=== PATIENT | female | born 1995 | race Native Hawaiian/Other Pacific Islander ===

== ENCOUNTER 2020-08-10 11:24 | Outpatient (CLI) | payer BC, SELFPAY ==
[2020-08-10 12:15] LABS: Basophils # 0.1 10^3/uL (0.0-0.1); Basophils % 0.3 %; Eosinophils # 0.2 10^3/uL (0.0-0.8); Eosinophils % 1.2 %; Hemoglobin 14.6 g/dL (11.5-15.3); Lymphocytes # 6.8 10^3/uL (0.8-4.8); Mean Corpuscular HGB Conc 31.7 g/dL (30.0-36.0); Mean Corpuscular Hemoglobin 27.2 pg (28.0-34.0); Mean Corpuscular Volume 85.8 fL (81-99); Monocytes # 1.1 10^3/uL (0.2-0.9); Monocytes % 7.1 %; Neutrophils # 6.64 10^3/uL (1.8-7.7); Neutrophils % 45.1 %; Nucleated Red Blood Cells % 0 %; Platelet Count 413 10^3/cmm (130-400); Red Blood Count 5.36 10^6/uL (4.1-5.3); White Blood Count 14.8 10^3/uL (4.0-10.0)
[2020-08-10 12:37] LABS: Bilirubin Urine Neg (Negative); Blood Urine Neg (Negative); Glucose Urine UA Norm (Normal); Ketones Urine Negative (Negative); Leukocyte Esterase Urine Negative (Negative); Nitrate Urine Negative (Negative); Protein Urine Neg (Negative); Urine Appearance Clear (CLEAR); Urine Color Yellow (Yellow); Urobilinogen Urine Norm (Negative); pH Urine 5 (5-7)
[2020-08-10 12:48] LABS: Alanine Aminotransferase 66 U/L (0-33); Albumin Level 4.3 g/dL (3.5-5.2); Alkaline Phosphatase 92 IU/L (35-105); Anion Gap 14.6 (5-19); Aspartate Amino Transferase 31 U/L (0-32); Blood Urea Nitrogen 12 mg/dL (6-20); Calcium 9.2 mg/dL (8.5-10.5); Carbon Dioxide 29 mmol/L (22-29); Chloride 100 mmol/L (98-107); Globulin 3.5 g/dL (1.3-4.6); Glucose 90 mg/dL (65-115); Osmolality Calculated 289 mOsm/kg (285-295); Potassium 3.6 mmol/L (3.5-5.1); Sodium 140 mmol/L (136-145); Thyroid Stimulating Hormone 3.33 uIU/mL (0.27-4.20); Total Bilirubin 0.3 mg/dL (0.15-1.2); Total Protein 7.8 g/dL (6.6-8.7)
[2020-08-10 12:59] LABS: Add Urine Culture? No; Bacteria Urine TRACE /hpf; Mucus Urine 1+ /hpf; Squamous Epithelial Cell Urine 0-4 /hpf (0-5); WBC Urine RARE /hpf (0-5)
[2020-08-10 13:30] LABS: Slide Review Slide Review Perform
[2020-08-10 13:58] LABS: Erythrocyte Sedimentation Rate 17 mm/hr (0-15)
== END 2020-08-10 11:25 | disposition home or self-care (01) ==
LOC: LAB 11:37
PROVIDERS: Visit Provider Specialist
DX: R42 Dizziness and giddiness (principal)
CPT/HCPCS: 80053; 81001; 84443; 85025; 85651; 86780

== ENCOUNTER 2020-08-15 10:52 | Outpatient (CLI) | payer BC, SELFPAY ==
--- NOTE | 2020-08-15 11:03 | MR_ITS ---
WS: [id number] MRI HEAD WITH CONTRAST WITH ATTENTION TO THE INTERNAL AUDITORY CANALS TECHNIQUE: Sagittal T1, T2 axial, T2 axial flair, axial susceptibility weighted imaging, axial diffus ion weighted images, and coronal T2 images were obtained. Pre and post T1 axial and post T1 coronal i mages. ADC and FSPGR images. Post gadolinium images with attention to the internal auditory canals. A xial fiesta imaging. CLINICAL INFORMATION: DIZZINESS AND GIDDINESS COMPARISON: None. FINDINGS: No evidence of restricted diffusion to suggest acute ischemia. Ventricular system and basal cisterns are patent. No hemosiderin on the susceptibly weighted images. Normal vascular flow voids at the skul l base. No extra-axial fluid collections. No evidence of mass or mass effect. No suspicious intracana l signal abnormalities. Proximal 7th and 8th cranial nerves are normal in appearance. Normal trigeminal nerve root entry zone s. No evidence of enhancing IAC or CP angle mass. Normal trigeminal nerve root entry zones. Normal du ral venous sinuses. No abnormal parenchymal enhancement. MR/MR iac's wo/w con* [id number] IMPRESSION: 1. No evidence of enhancing IAC or CP angle mass. Normal trigeminal nerve root entry zones. 2. Normal optic chiasm and pituitary infundibulum. 3. Paranasal sinuses and mastoid air cells are well aerated. 4. No hemosiderin on the susceptibly weighted images. 5. No other significant findings.
== END 2020-08-15 10:53 | disposition home or self-care (01) ==
LOC: RADSHAW 10:59
PROVIDERS: Visit Provider Specialist
DX: R42 Dizziness and giddiness (principal)
CPT/HCPCS: 70553; A9579

== ENCOUNTER 2021-04-13 08:44 | Observation (INO) | payer SELFPAY ==
[2021-04-13] VITALS (19 sets, daily range): BP systolic 101–122; BP diastolic 53–81; PULSE 59–104; RESP 14–22; TEMP 36.4–36.6; O2SAT 97–100; BMI 29.7
--- NOTE | 2021-04-13 09:02 | ECG_ITS ---
[facility] Test Date: 2021-04-13 Pat Name: Neno Mills Department: Room: Gender: Female Concrete Polisher: : 1995 Requested By: Reji Barbosa Order Number: [id number] Deanne MD: Jordan Melvin M.D. Measurements Intervals [place] Rate: 64 P: 13 DC: 145 QRS: 76 QRSD: 85 T: 52 QT: 420 QTc: 436 Interpretive Statements SINUS RHYTHM No previous ECG available for comparison Electronically Signed On 04-13-2021 20:05:10 CDT by Jordan Melvin M.D. [id number]
--- NOTE | 2021-04-13 09:18 | US_ITS ---
WS: [id number] ULTRASOUND ABDOMEN LIMITED CLINICAL INFORMATION: RUQ abd pain COMPARISON: None. FINDINGS: Liver Size: Normal. Craniocaudal length: 10.6 cm. Echogenicity: Normal. Surface nodularity: None. Mass (size and location): None. Bile ducts Intrahepatic ducts: Normal. Common bile duct diameter: 1.0 cm. Gallbladder Cholelithiasis Gallstones: Present Gallbladder sludge: None. Gallbladder wall thickenin.6 mm Pericholecystic fluid: None. Sonographic Avila sign: Absent. Pancreas Normal as visualized. Right kidney: Normal. Hydronephrosis: None. Size: 9.5 cm x 5.0 cm x 4.1 cm. Abdominal aorta and IVC Visualized portions are normal. Ascites: None. US/US gall bladder [id number] IMPRESSION: 1. Cholelithiasis. Minimal gallbladder wall thickening. No pericholecystic flu id or edema. 2. Dilated common bile duct measuring 9.6 mm. This could be followed up with [facility] to assess for choledocholithiasis. 3. No hydronephrosis in right kidney. 4. Normal liver.
--- NOTE | 2021-04-13 09:59 | ED_ITS ---
HPI - Abdominal Pain General: Chief Complaint: Abdominal Pain Stated Complaint: abd pain, N/V Time Seen by Provider: 04/13/21 08:45 History of Present Illness: HPI narrative: 25-year-old female presents emergency room complaining of right upper quadrant epigastric pain radiating to her back been going on for a week markedly worse overnight worse when she eats. It is somewhat positional at times. She denies any fever. No hematochezia melena hematemesis coffee-ground emesis no dysuria urgency or frequency or hematuria. MD elicited complaint: abdominal pain Onset (ago): day(s) Pain Consistency: intermittent Location: Epigastric Severity: moderate Radiation: back Exacerbating factors: eating Relieving factors: nothing and eating Associated Symptoms: Reports GI cramping, diarrhea, heartburn, nausea, poor appetite and vomiting; Denies anorexia, belching, bloating, change in bowel habits, change in stool character, chills, coffee ground emesis, constipation, dyspepsia, dysuria, excessive flatus, fever(s), hematochezia, hematuria, hematemesis, fecal incontinence, loose stools, melena and syncope Review of Systems Const: Denies: fever(s) or chills ENMT: Denies: throat pain, ear or mastoid pain, nasal discharge or nasal congestion Card: Denies: syncope Resp: Denies: dyspnea, productive cough or non-productive cough GI: Reports: nausea, vomiting, heartburn, diarrhea and GI cramping; Denies: hematemesis, coffee ground emesis, constipation, bloating, belching, excessive flatus, fecal incontinence, change in bowel habits, change in stool character, hematochezia or melena : Denies: dysuria or hematuria Skin/Breast: Denies: rash or pruritus Physical Exam Const: COMMON NORMALS: no acute distress GENERAL APPEARANCE: cooperative and comfortable ORIENTATION/CONSCIOUSNESS: Yes awake, Yes oriented to person, Yes oriented to place and Yes oriented to time HENMT: COMMON NORMALS: normocephalic, atraumatic and hearing grossly normal bilaterally HEAD & SCALP: normocephalic and atraumatic Neck/C-Spine: COMMON NORMALS: no JVD Resp: COMMON NORMALS: normal respiratory effort, No retractions, No use of accessory muscles and clear to auscultation bilaterally AUSCULTATION: clear to auscultation bilaterally Cardio: COMMON NORMALS: no JVD, regular rate, regular rhythm and No murmurs present (Cardio) RATE: regular rate RHYTHM: regular rhythm GI: COMMON NORMALS: Soft to palpation and No hepatosplenomegaly present AUSCULTATION: Yes normoactive bowel sounds PALPATION: Yes Soft to palpation, Yes Tenderness to palpation present (GI) Details: RUQ, No Guarding due to palpation present (GI) and Yes No hepatosplenomegaly present Extremity: COMMON NORMALS: normal to inspection, capillary refill normal, no clubbing, cyanosis or edema, no calf tenderness and no pedal edema Neuro: SENSORIUM/ORIENTATION: Yes oriented to person, Yes oriented to place and Yes oriented to time Skin: COMMON NORMALS: no rashes or lesions noted GENERAL SKIN EXAM: no rashes or lesions noted Course Vital Signs: Vital signs: Vital Signs Temperature 97.5 F L 04/13/21 09:02 Pulse Rate 63 04/13/21 09:02 Respiratory Rate 16 04/13/21 09:02 Blood Pressure 122/81 04/13/21 11:10 Pulse Oximetry 100 04/13/21 11:10 MDM - Abdominal Pain MDM Narrative: Medical decision making narrative: Question of, bile duct dilation on the ultrasound recommended an MRCP. MRCP was done there is no evidence of common bile duct stones however there is a stone of the neck of the gallbladder. Discussed Dr. Blanco he will come and see the patient Lab Data: Labs: Lab Results 04/13/21 04/13/21 04/13/21 Range/Units 09:51 09:55 09:55 WBC 6.5 (4.0-10.0) 10^3/ uL RBC 4.89 (4.1-5.3) 10^6/u L Hgb 14.0 (11.5-15.3) g/dL Hct 41.8 (37.0-47.0) % MCV 85.5 (81-99) fl MCH 28.6 (28.0-34.0) pg MCHC 33.5 (30.0-36.0) g/dL RDW 11.5 L (12.1-15.1) % Plt Count 317 (130-400) 10^3/c mm MPV 8.9 (7.4-10.4) fL Neut % (Auto) 78.5 % Lymph % (Auto) 14.1 % [place] % (Auto) 6.3 % Eos % (Auto) 0.3 % Baso % (Auto) 0.6 % Neut # (Auto) 5.13 (1.8-7.7) 10^3/u L Lymph # (Auto) 0.9 (0.8-4.8) 10^3/u L [place] # (Auto) 0.4 (0.2-0.9) 10^3/u L Eos # (Auto) 0.0 (0.0-0.8) 10^3/u L Baso # (Auto) 0.0 (0.0-0.1) 10^3/u L Nucleated RBC % (a uto) 0 % Nucleated RBCs # 0.0 /100WBC Sodium 128 L (136-145) mmol/L Potassium 4.0 (3.5-5.1) mmol/L Chloride 94 L (98-107) mmol/L Carbon Dioxide 24 (22-29) mmol/L Anion Gap 14.0 (5-19) BUN 8 (6-20) mg/dL Creatinine 0.5 (0.5-0.9) mg/dL GFR Calculation 149.1 H (90-130) mL/min Glucose 101 (65-115) mg/dL Calculated Osmolal ity 264 L (285-295) mOsm/k g Calcium 9.2 (8.5-10.5) mg/dL Total Bilirubin 1.6 H (0.15-1.2) mg/dL AST 677 H (0-32) U/L ALT 419 H (0-33) U/L Alkaline Phosphata se 113 H (35-105) IU/L Total Protein 8.1 (6.6-8.7) g/dL Albumin 4.2 (3.5-5.2) g/dL Globulin 3.9 (1.3-4.6) g/dL Urine Color Yellow (Yellow) Urine Appearance Clear (CLEAR) Urine pH 9 H (5-7) Ur Specific Gravit y 1.015 (1.005-1.030) Urine Protein Neg (Negative) Urine Glucose (UA) Norm (Normal) Urine Ketones 2+ H (Negative) Urine Blood Neg (Negative) Urine Nitrate Negative (Negative) Urine Bilirubin 1+ H (Negative) Prot Sulfosalicyli c Acd Negative (Negative) Urine Urobilinogen 1 H (Negative) mg/dL Ur Leukocyte Evelyn ase 1+ H (Negative) Urine RBC None (0-2) /hpf Urine WBC 5-10 H (0-5) /hpf Ur Squamous Epith Cells 5-10 H (0-5) /hpf Amorphous Sediment Not Reportable Urine Bacteria 1+ H (NONE) /hpf Urine Mucus 2+ /hpf Discharge Plan Discharge Patient Disposition: Admitted As Inpatient Clinical Impression: Acute cholecystitis Condition: Stable Coding Level of Care Code ED [facility] Director for Chg Fwd Exam Comprehensive
[2021-04-13] MEDS: sodium chloride 0.9% 1,000 ML 999 ML IV (10:03)
[2021-04-13 10:08] LABS: Basophils % 0.6 %; Eosinophils % 0.3 %; Hematocrit 41.8 % (37.0-47.0); Lymphocytes # 0.9 10^3/uL (0.8-4.8); Lymphocytes % 14.1 %; Mean Corpuscular HGB Conc 33.5 g/dL (30.0-36.0); Mean Corpuscular Hemoglobin 28.6 pg (28.0-34.0); Mean Corpuscular Volume 85.5 fl (81-99); Mean Platelet Volume 8.9 fL (7.4-10.4); Monocytes # 0.4 10^3/uL (0.2-0.9); Monocytes % 6.3 %; Neutrophils # 5.13 10^3/uL (1.8-7.7); Neutrophils % 78.5 %; Nucleated Red Blood Cells % 0 %; Platelet Count 317 10^3/cmm (130-400); Red Blood Count 4.89 10^6/uL (4.1-5.3); Red Cell Distribution Width 11.5 % (12.1-15.1); White Blood Count 6.5 10^3/uL (4.0-10.0)
[2021-04-13 10:33] LABS: Alanine Aminotransferase 419 U/L (0-33); Albumin Level 4.2 g/dL (3.5-5.2); Alkaline Phosphatase 113 IU/L (35-105); Aspartate Amino Transferase 677 U/L (0-32); Blood Urea Nitrogen 8 mg/dL (6-20); Calcium 9.2 mg/dL (8.5-10.5); Carbon Dioxide 24 mmol/L (22-29); Chloride 94 mmol/L (98-107); Globulin 3.9 g/dL (1.3-4.6); Glomerular Filtration Rate 149.1 mL/min (90-130); Glucose 101 mg/dL (65-115); Osmolality Calculated 264 mOsm/kg (285-295); Sodium 128 mmol/L (136-145); Total Bilirubin 1.6 mg/dL (0.15-1.2); Total Protein 8.1 g/dL (6.6-8.7)
[2021-04-13 10:38] LABS: Add Urine Microscopic? YES; Bilirubin Urine 1+ (Negative); Blood Urine Neg (Negative); Glucose Urine UA Norm (Normal); Ketones Urine 2+ (Negative); Leukocyte Esterase Urine 1+ (Negative); Nitrate Urine Negative (Negative); Protein Urine Neg (Negative); Specific Gravity, Urine 1.015 (1.005-1.030); Sulfosalicylic Acid Urine Negative (Negative); Urine Appearance Clear (CLEAR); Urine Color Yellow (Yellow); Urobilinogen Urine 1 mg/dL (Negative); pH Urine 9 (5-7)
[2021-04-13 10:39] LABS: Add Urine Culture? Yes; Bacteria Urine 1+ /hpf; Mucus Urine 2+ /hpf
--- NOTE | 2021-04-13 11:03 | MR_ITS ---
WS: [id number] MRI/MRCP OF THE ABDOMEN WITHOUT GADOLINIUM ENHANCEMENT TECHNIQUE: Thin and thick slab MRCP, Axial T2, Coronal MRCP, Axial Dual Echo, and Axial 2-D Fiesta imaging was obtained. Coronal 2-D Fiesta imaging. CLINICAL INFORMATION: RUQ abd pain, dialated CBD COMPARISON: Ultrasound on April 24, 2021 FINDINGS: Cholelithiasis. No gallbladder wall thickening or pericholecystic fluid. Dilated common breana e duct with calculus in the tortuous gallbladder neck near the origin of the cystic duct. Calculus me asures approximately 7 mm. Common hepatic duct and common bile duct are normal in appearance. Normal pancreatic duct. No calculi within the cystic duct. Normal liver. No intrahepatic biliary ductal dilatation. Normal portal vein and splenic vein. Normal pancreas. Normal spleen. Adrenal glands are normal. No hydronephrosis in either kidney. Normal calibe r abdominal aorta. Normal spleen. No abdominal lymphadenopathy. MR/MR MRCP [id number] Impression: 1. 7 mm calculus in the gallbladder neck distally at the origin of the cystic duct. Common hepatic duct and common bile duct appear patent. The cystic duct o therwise appears patent. 2. Normal pancreatic duct. No evidence of pancreatic mass. 3. Cholelithiasis. No gallbladder wall thickening or pericholecystic fluid. 4. Normal liver. 5. No hydronephrosis in either kidney. Notified Reji Bush DO at 04/13/2021 12:37 PM.
--- NOTE | 2021-04-13 12:42 | P.HP_ITS ---
Providers/Chief Complaint Admitting Physician: General Surgery Karlo Blanco MD Chief Complaint: Upper abdominal pain, back pain History of Present Illness Neno Mills is a 25 year old female who says that she started having rather severe epigastric discomfort about a week ago. The pain was associated with nausea and some vomiting but there was never any evidence of hematemesis. She says she has been having loose stool over the past week, as well, but there has been no evidence of melena or hematochezia. She is not sure if she has had any fevers. She has had days where she was completely pain-free but then the pain seems to come back and will go through to her back. She developed the pain again last night after eating dinner and took some ibuprofen. She came to the hospital today when the pain continued to worsen. Imaging revealed a marginally thickened gallbladder wall with cholelithiasis and evidence of a stone stuck in the neck of the gallbladder. Her liver function studies were elevated somewhat and so an MRCP was done but there was no evidence of choledocholithiasis. The patient says this is the first time she is ever had pain like this. She has not had any food intolerances in the past. In short, she does not sound to have any convincing ongoing evidence of biliary colic. She does tell me she was lianna rn with hepatitis B. It does not sound like she has this checked on very often. Review of Systems General: Reports: 10 or more systems reviewed and unremarkable except in HPI and below GI: Reports: abdominal pain, nausea, vomiting, diarrhea and other (Born with hepatitis B, avoids eating red meat); Denies: hematemesis Medications/Allergies Home Medications Medication Instructions Recorded Confirmed Last Taken Type cetirizine [Zyrtec] 10 mg PO DAILY 04/13/21 04/13/21 Unknown History ibuprofen 400 mg PO Q4H PRN 04/13/21 04/13/21 04/13/21 08:00 History 400 mg Allergies Allergy/AdvReac Type Severity Reaction Status Date / Time No Known Allergies Allergy Verified 04/13/21 09:35 PFSH Acute PFSH: Medical History (Updated 04/13/21 @ 13:43 by Karlo Blanco MD) 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 She asked like she does not feel very well. The pupils are equal. No carotid bruits are heard. The lungs are clear. The heart seems regular. The abdomen reveals bowel sounds but they are hypoactive. Her maximum point of tenderness is in the epigastrium or perhaps slightly to the right side with a positive Avila's sign. She does have some tenderness off into the left upper quadrant, however. The extremities reveal no edema. Neurologically the patient appears to be grossly intact. Data : 04/13/21 09:55 04/13/21 09:55 Other Labs: Laboratory Tests 04/13/21 09:55 Total Bilirubin 1.6 H AST 677 H ALT 419 H Alkaline Phosphatase 113 H US: Radiologist's impression: Right upper quadrant ultrasound 04/13/2021 IMPRESSION: 1. Cholelithiasis. Minimal gallbladder wall thickening. No pericholecystic fluid or edema. 2. Dilated common bile duct measuring 9.6 mm. This could be followed up with MRCP to assess for choledocholithiasis. 3. No hydronephrosis in right kidney. 4. Normal liver. MRI: Radiologist's impression: MRCP 04/13/2021 impression: 1. 7 mm calculus in the gallbladder neck distally at the origin of the cystic duct. Common hepatic duct and common bile duct appear patent. The cystic duct otherwise appears patent. 2. Normal pancreatic duct. No evidence of pancreatic mass. 3. Cholelithiasis. No gallbladder wall thickening or pericholecystic fluid. 4. Normal liver. 5. No hydronephrosis in either kidney. A&P Assessment and plan (1) Acute cholecystitis: The patient has had rather severe symptoms on and off over the past week. This is the worst pain that she has had which brought her in today. Imaging shows a stone stuck in the neck of the gallbladder and no evidence of choledocholithiasis. The radiologist felt there was no evidence of gallbladder wall thickening but I would argue that a 3.6 mm wall is thickened. It would appear the patient has acute calculus cholecystitis. I have discussed gallbladder disease with the patient and her in detail. A cholecystectomy has been recommended. We discussed surgical risks of blee ding, infection, internal organ injury, etc. The patient seems to understand and would like to proceed with a cholecystectomy today. She has been n.p.o. since last night. We will keep her n.p.o. and will make arrangements for a cholecystectomy later today. Status: Acute (2) Elevated LFTs: I suspect this is most likely all secondary to the patient's cholecystitis, but she indicates that she does have a history of hepatitis B. I will check an acute hepatitis panel just to make sure there is nothing new. Status: Acute Attestations Medical Necessity Statement*: Based on my medical assessment, presenting symptoms and consideration of the scope of surgical therapy, I expect this patient will require treatment in the hospital for a period of time spanning less than 2 midnights, and is therefore being placed in observation status for now. Coding Level of Care Code Acute Document Review Specialist for Lolly Briceño Diagnoses Acute cholecystitis K81.0 Elevated LFTs R79.89
[2021-04-13] MEDS: morphine 4 mg/mL SDV 1 mL IVP (13:28)
[2021-04-13 14:12] LABS: HCG Qualitative Urine. Negative (Negative)
[2021-04-13 14:22] LABS: Hepatitis A Antibody IgM Non-Reactive (Nonreactive); Hepatitis B Core IgM Non-Reactive (Nonreactive); Hepatitis C Virus Antibody Non-Reactive (Nonreactive)
--- NOTE | 2021-04-13 14:50 | P.ANESASSM_ITS ---
Pre-Anesthetic Assessment Pre-Anesthetic Assessment: Height/Weight: Height 1.56 m Weight 72.575 kg Temp Pulse Resp BP Pulse Ox 97.5 F L 63 18 122/81 100 04/13/21 09:02 04/13/21 09:02 04/13/21 13:44 04/13/21 11:10 04/13/21 13:44 Preop Diagnosis: cholecystitis Proposed Procedure: Operation Date: 04/13/21 15:00 Proposed Procedures p Laparoscopic Cholecystectomy(Not Applicable) - Karlo Blanco MD Familial anesthetic complications: None Was Beta Chinyere taken within 24 hours: N/A Was Clonidine taken within 24 hours: N/A Last intake: Intake Last Liquid Date 04/13/21 Last Liquid Time 08:00 Last Solid Date 04/12/21 Last Solid Time 19:00 Social: Social History: No alcohol and No tobacco Exam: Pre-Anes Outpt Exam: alert, oriented x 3, clear to auscultation bilaterally and regular rate & rhythm Airway: Cervical ROM: WNL MP: 2 Dentition: False Hepatic: Hepatic: Hepatitis (B) Anesthetic Plan: ASA status: 2 Anesthesia: General Risk of > 500 ml blood loss (7ml/kg in children): No PFSH Anesthesia PFSH: Medical History (Updated 04/13/21 @ 13:43 by Karlo Blanco MD) 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 Hepatitis B Surgical History (Updated 04/13/21 @ 13:41 by Karlo Blanco MD) No significant past surgical history Social History (Updated 04/13/21 @ 13:41 by Karlo Blanco MD) Smoking and tobacco status: never smoked Alcohol intake: never Data Anesthesia CBC & Chem 7: 04/13/21 09:55 04/13/21 09:55 Other Labs: Laboratory Results - last 48 hr 04/13/21 04/13/21 04/13/21 09:51 09:51 09:55 WBC 6.5 RBC 4.89 Hgb 14.0 Hct 41.8 MCV 85.5 MCH 28.6 MCHC 33.5 RDW 11.5 L Plt Count 317 MPV 8.9 Neut % (Auto) 78.5 Lymph % (Auto) 14.1 [place] % (Auto) 6.3 Eos % (Auto) 0.3 Baso % (Auto) 0.6 Neut # (Auto) 5.13 Lymph # (Auto) 0.9 [place] # (Auto) 0.4 Eos # (Auto) 0.0 Baso # (Auto) 0.0 Nucleated RBC % (auto) 0 Nucleated RBCs # 0.0 Sodium Potassium Chloride Carbon Dioxide Anion Gap BUN Creatinine GFR Calculation Glucose Calculated Osmolality Calcium Total Bilirubin AST ALT Alkaline Phosphatase Total Protein Albumin Globulin HCG, Qual Negative Urine Color Yellow Urine Appearance Clear Urine pH 9 H Ur Specific [place] 1.015 Urine Protein Neg Urine Glucose (UA) Norm Urine Ketones 2+ H Urine Blood Neg Urine Nitrate Negative Urine Bilirubin 1+ H Prot Sulfosalicylic Acd Negative Urine Urobilinogen 1 H Ur Leukocyte Esterase 1+ H Urine RBC None Urine WBC 5-10 H Ur Squamous Epith Cells 5-10 H Amorphous Sediment Not Reportable Urine Bacteria 1+ H Urine Mucus 2+ Hepatitis A IgM Ab Hep B Core IgM Ab Hepatitis C Antibody 04/13/21 04/13/21 09:55 09:55 WBC RBC Hgb Hct MCV MCH MCHC RDW Plt Count MPV Neut % (Auto) Lymph % (Auto) [place] % (Auto) Eos % (Auto) Baso % (Auto) Neut # (Auto) Lymph # (Auto) [place] # (Auto) Eos # (Auto) Baso # (Auto) Nucleated RBC % (auto) Nucleated RBCs # Sodium 128 L Potassium 4.0 Chloride 94 L Carbon Dioxide 24 Anion Gap 14.0 BUN 8 Creatinine 0.5 GFR Calculation 149.1 H Glucose 101 Calculated Osmolality 264 L Calcium 9.2 Total Bilirubin 1.6 H AST 677 H ALT 419 H Alkaline Phosphatase 113 H Total Protein 8.1 Albumin 4.2 Globulin 3.9 HCG, Qual Urine Color Urine Appearance Urine pH Ur Specific [place] Urine Protein Urine Glucose (UA) Urine Ketones Urine Blood Urine Nitrate Urine Bilirubin Prot Sulfosalicylic Acd Urine Urobilinogen Ur Leukocyte Esterase Urine RBC Urine WBC Ur Squamous Epith Cells Amorphous Sediment Urine Bacteria Urine Mucus Hepatitis A IgM Ab Non-reactive Hep B Core IgM Ab Non-reactive Hepatitis C Antibody Non-reactive Cardiac Studies: No Data to Display
[2021-04-13] MEDS: metroNIDAZOLE IV 500 MG/100 ML PREMIX 100 MG IV ×2 (15:15→21:23)
[2021-04-13 15:19] LABS: Hepatitis B Surface Antigen Reactive (Nonreactive)
--- NOTE | 2021-04-13 15:58 | PM.OP ---
Operative Report Date of procedure: April 13, 2021 Pre-op Diagnosis: Acute calculus cholecystitis. Post-op diagnosis: same Procedure Done: Laparoscopic cholecystectomy. Specimens removed/disposition: Gallbladder. Surgeon: Karlo Blanco Anesthesia: General Estimated blood loss (mL): 5 Complications: None. Condition: stable Disposition: PACU Procedure: The patient was brought to the Operating Room and was placed in a supine position on the Operating Room table. General endotracheal anesthesia was induced. The abdomen was prepped and draped in a sterile fashion. A small vertical incision was carried out in the inferior aspect of the umbilicus. Blunt dissection was carried out down to the fascia, which was grasped with a Cole clamp. A stay suture of 0 Vicryl was placed on either side of the midline and the midline fascia was incised. The underlying peritoneum was opened bluntly and the [place] port was placed directly into the peritoneal cavity and was held in place with the inflatable balloon. The peritoneal cavity was insufflated with carbon dioxide. The laparoscope was used to inspect the abdominal cavity. The gallbladder appeared to be distended and the wall was edematous. No other gross abnormalities were noted. A 5 millimeter port was placed in the epigastrium under direct vision. Two 5-millimeter ports were placed on the right side of the abdomen under direct vision. The gallbladder was palpated with a grasper and was found to be very distended. For this reason approximately 30 mL of clear fluid was suctioned from the gallbladder using a laparoscopic needle. The gallbladder was then able to be grasped and elevated. Blunt dissection and hydrodissection were carried out in the infundibular region of the gallbladder and the cystic duct and cystic artery were identified. The surrounding tissue was edematous. The gallbladder was partially removed from the liver bed using cautery and the spatula to confirm the anatomy before the structures were clipped and divided. The gallbladder was then removed from the liver bed using cautery and the spatula. After the gallbladder had been removed from the liver bed, the laparoscope was moved to the epigastric port and the gallbladder was removed from the peritoneal cavity through the umbilical port site after being placed in a laparoscopic bag. The stay sutures of Vicryl were tied to each other at the umbilicus. An additional [id number] suture of 0 Vicryl was placed, closing the defect so that it was airtight. The perihepatic spaces were irrigated with saline and the liver bed was reinspected. No ongoing problems were seen. The remaining ports were removed from the abdominal wall and the pneumoperitoneum was evacuated. All skin incisions were closed using inverted interrupted sutures of 4-0 Vicryl. Benzoin and Steri-Strips were placed over the incisions and Band-Aids followed. The patient was taken to the Recovery Area in stable condition postoperatively.
[2021-04-13] MEDS: morphine 4 mg/mL SDV 1 mL 2 MG IVP (16:39)
[2021-04-13] MEDS: D5-NS 0.45% + KCL 20 mEq 20 MEQ/1,000 ML BAG 100 MEQ IV (17:48)
[2021-04-13] MEDS: heparin 5,000 unit/mL INJ 1 mL 5000 UNIT SUBCUT (17:48)
--- NOTE | 2021-04-13 18:34 | PC.NURSE ---
AM NOTE NOTED PT TO BE RESTING IN BED WITH FAMILY AT SIDE - INSTRUCTED PT ON NEED TO AMBULATE PRIOR TO HS - PT VERBALIZES UNDERSTANDING - HAND HELD CALL LIGHT AT SIDE - INSTRUCTED TO USE WITH NEEDS
[2021-04-13] MEDS: famotidine 20 mg/2 mL INJ IVP (19:59)
--- NOTE | 2021-04-13 20:05 | PC.NURSE ---
i report high reps 20 and low pulse 59 to nurse
--- NOTE | 2021-04-13 21:03 | ANE.PACU2 ---
Inpatient post-anesthesia follow up: Airway intact: Yes Vital signs: Temperature 97.7 F Pulse Rate [Left R adial] 63 Pulse Rate 59 Respiratory Rate 20 Blood Pressure [Le ft Arm] 114/77 Blood Pressure 113/76 Pulse Oximetry 97 Oxygen Delivery Me thod Room Air Oxygen Flow Rate 8 Fraction of Inspir ed Oxygen Hydration adequate: Yes Nausea and vomiting: No Pain level: 2 Mental status: Baseline
[2021-04-13] MEDS: ceFAZolin 1,000 MG in sodium chloride 0.9% (plus) 50 ML 100 MG IV (22:28)
[2021-04-13] MEDS: HYDROcodone-acetaminophen 5-325 mg Tablet PO (22:30)
[2021-04-14] VITALS: BP 116/79; PULSE 61; RESP 20; TEMP 36.7; O2SAT 98
--- NOTE | 2021-04-14 00:40 | PC.NURSE ---
i reported high reps to nurse
[2021-04-14 01:00] VITALS: BP 96/63; PULSE 63; RESP 18; O2SAT 96
[2021-04-14 03:03] LABS: Basophils % 0.3 %; Hematocrit 40.1 % (37.0-47.0); Hemoglobin 13.1 g/dL (11.5-15.3); Lymphocytes # 0.9 10^3/uL (0.8-4.8); Lymphocytes % 12.9 %; Mean Corpuscular HGB Conc 32.7 g/dL (30.0-36.0); Mean Corpuscular Hemoglobin 29.2 pg (28.0-34.0); Mean Corpuscular Volume 89.5 fl (81-99); Mean Platelet Volume 9.2 fL (7.4-10.4); Monocytes # 0.5 10^3/uL (0.2-0.9); Monocytes % 6.6 %; Neutrophils # 5.41 10^3/uL (1.8-7.7); Neutrophils % 79.9 %; Nucleated Red Blood Cells % 0 %; Platelet Count 296 10^3/cmm (130-400); Red Blood Count 4.48 10^6/uL (4.1-5.3); White Blood Count 6.8 10^3/uL (4.0-10.0)
[2021-04-14 03:27] LABS: Alanine Aminotransferase 427 U/L (0-33); Albumin Level 3.5 g/dL (3.5-5.2); Alkaline Phosphatase 104 IU/L (35-105); Anion Gap 11.5 (5-19); Aspartate Amino Transferase 357 U/L (0-32); Blood Urea Nitrogen 4 mg/dL (6-20); Calcium 8.3 mg/dL (8.5-10.5); Carbon Dioxide 22 mmol/L (22-29); Chloride 105 mmol/L (98-107); Globulin 3.1 g/dL (1.3-4.6); Glomerular Filtration Rate 149.1 mL/min (90-130); Glucose 141 mg/dL (65-115); Osmolality Calculated 277 mOsm/kg (285-295); Potassium 4.5 mmol/L (3.5-5.1); Sodium 134 mmol/L (136-145); Total Bilirubin 0.7 mg/dL (0.15-1.2); Total Protein 6.6 g/dL (6.6-8.7)
--- NOTE | 2021-04-14 03:59 | PC.NURSE ---
END OF SHIFT SUMMARY PT HAS RESTED THROUGHOUT SHIFT WITH V/S/S - HAS BEEN UP TO VOID WITH LITTLE ASSIST - ROSENDO FOOD WITHOUT DIFFICULTY THROUGHOUT SHIFT - ABD BAND AIDS X4 REMAIN C/D/I WITH NO REDNESS OR DRAINAGE - PAIN WELL CONTROLLED WITH 1 HYDROCODONE -EDUCATED PT THROUGHOUT SHIFT ON NEED TO AMBULATE - PT VERBALIZES UNDERSTANDING
[2021-04-14 04:00] VITALS: BP 115/74; PULSE 63; RESP 18; TEMP 36.8
[2021-04-14] MEDS: D5-NS 0.45% + KCL 20 mEq 20 MEQ/1,000 ML BAG 100 MEQ IV (05:04)
[2021-04-14] MEDS: heparin 5,000 unit/mL INJ 1 mL 5000 UNIT SUBCUT (05:04)
[2021-04-14] MEDS: metroNIDAZOLE IV 500 MG/100 ML PREMIX 100 MG IV (05:04)
[2021-04-14] MEDS: HYDROcodone-acetaminophen 5-325 mg Tablet PO ×2 (06:17→10:56)
[2021-04-14] MEDS: ceFAZolin 1,000 MG in sodium chloride 0.9% (plus) 50 ML 100 MG IV (06:17)
[2021-04-14 07:25] VITALS: BP 106/73; PULSE 67; RESP 17; TEMP 36.5; O2SAT 99
[2021-04-14] MEDS: famotidine 20 mg/2 mL INJ IVP (08:42)
--- NOTE | 2021-04-14 08:45 | PM.DCS ---
Discharge Providers Date of Admission: 04/13/21 17:03 Date of Discharge: April 14, 2021 Attending Provider at Admission: Karlo Blanco MD Attending Provider at Discharge: Karlo Blanco MD Diagnoses at Discharge Discharge Diagnosis (1) Acute cholecystitis: Status: Acute Permanent problem details: Acute calculus cholecystitis. (2) Elevated LFTs: Status: Acute Reason for Visit Reason for Visit: Upper abdominal pain, back pain Hospital Course Hospital Course This is a 25-year-old female who developed upper abdominal pain about a week prior to presentation. This was intermittent but then got severe the day she presented to the hospital. Imaging revealed acute calculus cholecystitis and her liver function studies were somewhat elevated. An MRCP was done but revealed no evidence of choledocholithiasis. She was counseled with respect to a cholecystectomy and agreed to proceed. By the following morning she was already feeling much better. Her transaminases were generally improved and her bilirubin was normal. She was anxious to go home. Her exam was unremarkable for her postoperative #1 day status. She was instructed with respect to wound care, activity limitations, diet, etc. Arrangements will be made for her to follow-up in my office as an outpatient. Physical Exam Narrative: EXAM NARRATIVE: The patient is afebrile and vital signs are stable. All of the laparoscopic incisions look good. Bowel sounds are present and she has the expected amount of tenderness on exam. Discharge Data Data Completed and Pending: Completed Studies During Hospitalization Category Date Time Status MR MRCP 23281 Sta t MRI 04/13/21 11:03 Completed US gall bladder 7 [id number] Stat Ultrasound 04/13/21 09:18 Completed Pending at discharge Category Date Time Status Urine Culture Sta t Lab 04/13/21 09:51 Received Pathology: Surgic al [PTH] Routine Pth 04/13/21 16:12 Ordered Labs from last 24 hours 04/14/21 04/14/21 04/13/21 02:36 02:36 09:55 WBC 6.8 RBC 4.48 Hgb 13.1 Hct 40.1 MCV 89.5 MCH 29.2 MCHC 32.7 RDW 12.0 L Plt Count 296 MPV 9.2 Neut % (Auto) 79.9 Lymph % (Auto) 12.9 [place] % (Auto) 6.6 Eos % (Auto) 0.0 Baso % (Auto) 0.3 Neut # (Auto) 5.41 Lymph # (Auto) 0.9 [place] # (Auto) 0.5 Eos # (Auto) 0.0 Baso # (Auto) 0.0 Nucleated RBC % (a uto) 0 Nucleated RBCs # 0.0 Sodium 134 L Potassium 4.5 Chloride 105 Carbon Dioxide 22 Anion Gap 11.5 BUN 4 L Creatinine 0.5 GFR Calculation 149.1 H Glucose 141 H Calculated Osmolal ity 277 L Calcium 8.3 L Total Bilirubin 0.7 AST 357 H ALT 427 H Alkaline Phosphata se 104 Total Protein 6.6 Albumin 3.5 Globulin 3.1 HCG, Qual Urine Color Urine Appearance Urine pH Ur Specific Gravit y Urine Protein Urine Glucose (UA) Urine Ketones Urine Blood Urine Nitrate Urine Bilirubin Prot Sulfosalicyli c Acd Urine Urobilinogen Ur Leukocyte Evelyn ase Urine RBC Urine WBC Ur Squamous Epith Cells Amorphous Sediment Urine Bacteria Urine Mucus Hepatitis A IgM Ab Non-reactive Hep Bs Antigen Reactive H Hep B Core IgM Ab Non-reactive Hepatitis C Antibo dy Non-reactive 04/13/21 04/13/21 04/13/21 09:55 09:55 09:51 WBC 6.5 RBC 4.89 Hgb 14.0 Hct 41.8 MCV 85.5 MCH 28.6 MCHC 33.5 RDW 11.5 L Plt Count 317 MPV 8.9 Neut % (Auto) 78.5 Lymph % (Auto) 14.1 [place] % (Auto) 6.3 Eos % (Auto) 0.3 Baso % (Auto) 0.6 Neut # (Auto) 5.13 Lymph # (Auto) 0.9 [place] # (Auto) 0.4 Eos # (Auto) 0.0 Baso # (Auto) 0.0 Nucleated RBC % (a uto) 0 Nucleated RBCs # 0.0 Sodium 128 L Potassium 4.0 Chloride 94 L Carbon Dioxide 24 Anion Gap 14.0 BUN 8 Creatinine 0.5 GFR Calculation 149.1 H Glucose 101 Calculated Osmolal ity 264 L Calcium 9.2 Total Bilirubin 1.6 H AST 677 H ALT 419 H Alkaline Phosphata se 113 H Total Protein 8.1 Albumin 4.2 Globulin 3.9 HCG, Qual Negative Urine Color Urine Appearance Urine pH Ur Specific Gravit y Urine Protein Urine Glucose (UA) Urine Ketones Urine Blood Urine Nitrate Urine Bilirubin Prot Sulfosalicyli c Acd Urine Urobilinogen Ur Leukocyte Evelyn ase Urine RBC Urine WBC Ur Squamous Epith Cells Amorphous Sediment Urine Bacteria Urine Mucus Hepatitis A IgM Ab Hep Bs Antigen Hep B Core IgM Ab Hepatitis C Antibo dy 04/13/21 09:51 WBC RBC Hgb Hct MCV MCH MCHC RDW Plt Count MPV Neut % (Auto) Lymph % (Auto) [place] % (Auto) Eos % (Auto) Baso % (Auto) Neut # (Auto) Lymph # (Auto) [place] # (Auto) Eos # (Auto) Baso # (Auto) Nucleated RBC % (a uto) Nucleated RBCs # Sodium Potassium Chloride Carbon Dioxide Anion Gap BUN Creatinine GFR Calculation Glucose Calculated Osmolal ity Calcium Total Bilirubin AST ALT Alkaline Phosphata se Total Protein Albumin Globulin HCG, Qual Urine Color Yellow Urine Appearance Clear Urine pH 9 H Ur Specific Gravit y 1.015 Urine Protein Neg Urine Glucose (UA) Norm Urine Ketones 2+ H Urine Blood Neg Urine Nitrate Negative Urine Bilirubin 1+ H Prot Sulfosalicyli c Acd Negative Urine Urobilinogen 1 H Ur Leukocyte Evelyn ase 1+ H Urine RBC None Urine WBC 5-10 H Ur Squamous Epith Cells 5-10 H Amorphous Sediment Not Reportable Urine Bacteria 1+ H Urine Mucus 2+ Hepatitis A IgM Ab Hep Bs Antigen Hep B Core IgM Ab Hepatitis C Antibo dy Vitals: Last Vital Signs Temp 97.7 F 04/14/21 07:25 Pulse 67 04/14/21 07:25 Resp 17 04/14/21 07:25 BP 106/73 04/14/21 07:25 Pulse Ox 99 04/14/21 07:25 Discharge Plan Discharge Patient Disposition: Home Condition: Stable Prescriptions: New hydrocodone-acetaminophen 5-325 mg tablet 1 - 2 tab PO Q5H PRN (Reason: pain) Qty: 30 RF: 0 Continued Zyrtec 10 mg Tablet 10 mg PO DAILY RF: 0 ibuprofen 200 mg Tablet 400 mg PO Q4H PRN (Reason: Pain) RF: 0 Discharge Orders: Discharge Order (Routine); Ordered 04/14/21 Ordered By: Karlo Blanco Referrals: Karlo Blanco MD [Physician] - 2 weeks (Nursing: Please have the patient / family call Dr. Blanco's office on Saturday ([phone]) and make an appointment for the patient to be seen in 7-10 days.) Discharge Diet: Advance as tolerated Discharge Activity: Limit activity as instructed Patient Instructions: Opioid Safety Activity Restrictions/Additional Instructions: 1. Discharge to home today. 2. Appointment to see Dr. Blanco in 10-14 days. 3. Bandages / bandaids off later today as discussed, leave Steri-Strip(s) on, may shower. 4. [place] 5/325 1-2 tablets by mouth every 5 hours as needed for pain. #30, no refills. No lifting over 20 pounds, no repetitive bending or twisting, no strenuous pushing / pulling or other heavy activity. Ambulate regularly. May go up and down steps if needed. Discharge Attestations Time Spent in Discharge Care*: less than 30 min Quality Metrics Clinical Quality Measures During this hospital stay, did patient experience: None Coding Level of Care Code Acute Chg [facility] note Diagnoses Acute cholecystitis K81.0 Elevated LFTs R79.89
[2021-04-14 08:50] VITALS: PULSE 88; RESP 16; O2SAT 98
[2021-04-14 11:08] VITALS: PULSE 88; RESP 16; O2SAT 98
--- NOTE | 2021-04-14 11:09 | PC.NURSE ---
patient verbalized understanding of discharge instructions, home medications, and follow up instructions.
--- NOTE | 2021-04-17 14:50 | PC.SOCIAL ---
discharge follow up call made. patient reports she is feeling much better. patient taking pain medication with relief of pain. patient follow up appointment made, date and time given to patient. no questions or concerns voiced.
== END 2021-04-14 11:12 | disposition home or self-care (01) ==
LOC: ER 13:06 → OPS 13:37 → MEDSURG 04-14 06:29
PROVIDERS: Admitting Provider Surgery; Emergency Provider Family Medicine; Visit Provider Surgery
PROC: 0FT44ZZ Resection of Gallbladder, Percutaneous Endoscopic Approach (ICD-10-PCS; CPT 47562; principal; 2021-04-13 15:00)
DX: K80.10 Calculus of gallbladder with chronic cholecystitis without obstruction (principal)
CPT/HCPCS: 47562; 36415; 74181; 76705; 80053; 80074; 81001; 81025; 85025; 87086; 88304; 93005; 96360; 96372; 99285; G0378; J0690; J1100; J1644; J2250; J2270; J2405; J2704; J2710; J3010; J3490; J7030; S0030

== ENCOUNTER → 2021-06-12 10:15 | Outpatient (BNVA) | payer OTHER, SELFPAY | PROVIDERS: Visit Provider Nurse Practitioner Family | DX: Z20.822 Contact with and (suspected) exposure to COVID-19 (principal) | CPT/HCPCS: 87635 ==

== ENCOUNTER 2024-07-12 10:33 | Emergency (ER) | payer BC, SELFPAY ==
[2024-07-12 11:08] VITALS: BP 108/66; PULSE 70; RESP 17; TEMP 36.6; O2SAT 93; BMI 30.7
--- NOTE | 2024-07-12 11:24 | ED_ITS ---
HPI - Abdominal Pain 2 General: Chief Complaint: Abdominal Pain Stated Complaint: abd pain, back pain Time Seen by Provider: 07/12/24 10:39 History of Present Illness: 28-year-old female presents emergency ro om with abdominal pain that began while she was eating. Began while she was eating. Lasted for a relatively brief period of time maybe around half an hour and then resolved. While she had it was in the epigastric area rating to back on the left. No dysuria urgency or frequency. Associated Symptoms: Denies chills, dysuria and fever(s) Related Data Date of Last Menstrual Period: 07/12/24 Previous Rx's Medication Instructions Recorded sulfamethoxazole 800 1 tab PO DAILY 7 days #14 tabs 07/12/24 mg-trimethoprim 160 mg tablet (Bactrim DS) Allergies Allergy/AdvReac Type Severity Reaction Status Date / Time No Known Allergies Allergy Verified 06/12/21 08:53 Review of Systems 2 Const: Denies: fever(s) or chills Card: Denies: chest pain Resp: Denies: dyspnea GI: Denies: abdominal pain : Denies: dysuria, urinary frequency or urinary urgency Musc: Denies: neck pain or back pain Skin/Breast: Denies: rash PFSH ED 2 PFSH: Medical History 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 Hepatitis B Surgical History No significant past surgical history Social History Smoking and tobacco/nicotine status: never used tobacco/nicotine Alcohol intake: never Female Reproductive History: Date of last menstrual period: 07/12/24 Physical Exam 2 Const: COMMON NORMALS: no acute distress GENERAL APPEARANCE: cooperative and comfortable ORIENTATION/CONSCIOUSNESS: Yes awake, Yes oriented to person, Yes oriented to place and Yes oriented to time HENMT: COMMON NORMALS: normocephalic, atraumatic and hearing grossly normal bilaterally HEAD & SCALP: normocephalic and atraumatic Resp: COMMON NORMALS: normal respiratory effort, No retractions, No use of accessory muscles and clear to auscultation bilaterally AUSCULTATION: clear to auscultation bilaterally Cardio: COMMON NORMALS: regular rate, regular rhythm and No murmurs present (Cardio) RATE: regular rate RHYTHM: regular rhythm GI: COMMON NORMALS: Soft to palpation and No hepatosplenomegaly present A USCULTATION: Yes normoactive bowel sounds PALPATION: Yes Soft to palpation, No Tenderness to palpation present (GI), No Guarding due to palpation present (GI) and Yes No hepatosplenomegaly present Extremity: COMMON NORMALS: normal to inspection, capillary refill normal, no clubbing, cyanosis or edema, no calf tenderness and no pedal edema Neuro: SENSORIUM/ORIENTATION: Yes oriented to person, Yes oriented to place and Yes oriented to time Skin: COMMON NORMALS: no rashes or lesions noted GENERAL SKIN EXAM: no rashes or lesions noted Course 2 Vital Signs: Vital signs: Vital Signs Temperature 97.8 F 07/12/24 11:08 Pulse Rate 70 07/12/24 11:08 Respiratory Rate 17 07/12/24 11:08 Blood Pressure 114/74 07/12/24 12:30 Pulse Oximetry 95 07/12/24 12:00 Oxygen Delivery Me thod Room Air 07/12/24 11:08 MDM - Abdominal Pain Medical Decision Making Patient has a white count of 14,000 had asked her to have a CT she declined discussed that the value and complete without it she said she is not having any further pain does not want to have it done. Urine shows some signs of infection was also fair amount of epithelial cells initially was going to wait for the culture after reviewing further decided to go ahead and treat nursing called staff and we called in the antibiotic for the cystitis. Patient encouraged to return if she has further problems Medical Records I reviewed the patient's medical records. Lab Data I reviewed the patient's lab results. 07/12/24 12:06 07/12/24 12:06 Labs/Radiology: Laboratory Results WBC 14.12 10^3/uL (3.29-11.43) H 07/12/24 12:06 RBC 4.76 10^6/uL (3.85-5.65) 07/12/24 12:06 Hgb 13.50 g/dL (11.27-16.99) 07/12/24 12:06 Hct 41.7 % (36-47) 07/12/24 12:06 MCV 87.6 fl (85-98) 07/12/24 12:06 MCH 28.4 pg (27-33) 07/12/24 12:06 MCHC 32.4 g/dL (30-55) 07/12/24 12:06 RDW 12.1 % (12.1-15.1) 07/12/24 12:06 Plt Count 321 10^3/cmm (157-399) 07/12/24 12:06 MPV 8.8 fL (7.4-10.4) 07/12/24 12:06 Neut % (Auto) 73.5 % 07/12/24 12:06 Lymph % (Auto) 13.3 % 07/12/24 12:06 [place] % (Auto) 6.2 % 07/12/24 12:06 Eos % (Auto) 6.2 % 07/12/24 12:06 Baso % (Auto) 0.4 % 07/12/24 12:06 Neut # (Auto) 10.39 10^3/uL (1.8-7.7) H 07/12/24 12:06 Lymph # (Auto) 1.9 10^3/uL (0.8-4.8) 07/12/24 12:06 [place] # (Auto) 0.9 10^3/uL (0.2-0.9) 07/12/24 12:06 Eos # (Auto) 0.9 10^3/uL (0.0-0.8) H 07/12/24 12:06 Baso # (Auto) 0.1 10^3/uL (0.0-0.1) 07/12/24 12:06 Nucleated RBC % (auto) 0 % 07/12/24 12:06 Nucleated RBCs # 0.0 /100WBC 07/12/24 12:06 Sodium 137 mmol/L (136-145) 07/12/24 12:06 Potassium 3.8 mmol/L (3.5-5.1) 07/12/24 12:06 Chloride 103 mmol/L (98-107) 07/12/24 12:06 Carbon Dioxide 23 mmol/L (22-29) 07/12/24 12:06 Anion Gap 14.8 (5-19) 07/12/24 12:06 BUN 12 mg/dL (6-20) 07/12/24 12:06 Creatinine 0.6 mg/dL (0.5-0.9) 07/12/24 12:06 GFR Calculation 118.2 mL/min (90-130) 07/12/24 12:06 Glucose 97 mg/dL (65-115) 07/12/24 12:06 Calculated Osmolality 284 mOsm/kg (285-295) L 07/12/24 12:06 Calcium 9.1 mg/dL (8.5-10.5) 07/12/24 12:06 Total Bilirubin 0.5 mg/dL (0.15-1.2) 07/12/24 12:06 AST 54 U/L (0-32) H 07/12/24 12:06 ALT 27 U/L (0-33) 07/12/24 12:06 Alkaline Phosphatase 105 U/L (35-105) 07/12/24 12:06 Total Protein 7.5 g/dL (6.6-8.7) 07/12/24 12:06 Albumin 4.1 g/dL (3.5-5.2) 07/12/24 12:06 Globulin 3.4 g/dL (1.3-4.6) 07/12/24 12:06 Lipase > 3456 U/L (13-60) H 07/12/24 12:06 HCG, Qual Negative (Negative) 07/12/24 12:06 Urine Color Yellow (Yellow) 07/12/24 12:07 Urine Appearance Clear (CLEAR) 07/12/24 12:07 Urine pH 8.5 (5-7) A 07/12/24 12:07 Ur Specific [place] 1.026 (1.005-1.030) 07/12/24 12:07 Urine Protein Trace (Negative) A 07/12/24 12:07 Urine Glucose (UA) Negative (Normal) 07/12/24 12:07 Urine Ketones Trace (Negative) 07/12/24 12:07 Urine Blood 1+ (Negative) A 07/12/24 12:07 Urine Nitrate Negative (Negative) 07/12/24 12:07 Urine Bilirubin Negative (Negative) 07/12/24 12:07 Urine Urobilinogen 1.0 mg/dL (Negative) 07/12/24 12:07 Ur Leukocyte Esterase 1+ (Negative) A 07/12/24 12:07 Urine RBC 0-4 /hpf (0-2) H 07/12/24 12:07 Urine WBC 15-25 /hpf (0-5) H 07/12/24 12:07 Ur Squamous Epith Cells 5-10 /hpf (0-5) H 07/12/24 12:07 Amorphous Sediment Not Reportable 07/12/24 12:07 Urine Bacteria 1+ /hpf (NONE) H 07/12/24 12:07 Hyaline Casts 0-4 /lpf H 07/12/24 12:07 No radiology studies performed this visit Discharge Plan Discharge Patient Disposition: Home Clinical Impression: Abdominal pain, Cystitis Condition: Stable Prescriptions: New sulfamethoxazole-trimethoprim [Bactrim DS] 800-160 mg tablet 1 tab PO DAILY 7 Days Qty: 14 0RF Discharge Orders: Discharge ED (Routine); Ordered 07/12/24 Ordered By: Reji Bush Patient Instructions: Abdominal Pain (ED), Opioid Safety, Pain Management Activity Restrictions/Additional Instructions: Thank you for choosing [facility] for your healthcare needs today. It is very important that you follow up as instructed or that you return to the Emergency Department should you have concerns or if your condition changes or worsens in any way. You are seen in the emergency room with a complaint of abdominal pain. We had ordered a CT to further evaluate your complaints. You chose to decline the CT so we are not able to complete our evaluation. You are welcome return at any time to complete evaluation. If your symptoms recur or change you are encouraged to return to the emergency room. Coding Level of Care Code ED Whale Trainer for Lolly Briceño
[2024-07-12 12:00] VITALS: BP 108/74; O2SAT 95
[2024-07-12 12:15] LABS: Basophils # 0.1 10^3/uL (0.0-0.1); Basophils % 0.4 %; Eosinophils # 0.9 10^3/uL (0.0-0.8); Eosinophils % 6.2 %; Hematocrit 41.7 % (36-47); Lymphocytes # 1.9 10^3/uL (0.8-4.8); Lymphocytes % 13.3 %; Mean Corpuscular HGB Conc 32.4 g/dL (30-55); Mean Corpuscular Hemoglobin 28.4 pg (27-33); Mean Corpuscular Volume 87.6 fl (85-98); Mean Platelet Volume 8.8 fL (7.4-10.4); Monocytes # 0.9 10^3/uL (0.2-0.9); Monocytes % 6.2 %; Neutrophils # 10.39 10^3/uL (1.8-7.7); Neutrophils % 73.5 %; Nucleated Red Blood Cells % 0 %; Platelet Count 321 10^3/cmm (157-399); Red Blood Count 4.76 10^6/uL (3.85-5.65); Red Cell Distribution Width 12.1 % (12.1-15.1); White Blood Count 14.12 10^3/uL (3.29-11.43)
[2024-07-12 12:17] LABS: Bilirubin Urine Negative (Negative); Blood Urine 1+ (Negative); Glucose Urine UA Negative (Normal); Ketones Urine Trace (Negative); Leukocyte Esterase Urine 1+ (Negative); Nitrate Urine Negative (Negative); Protein Urine Trace (Negative); Specific Gravity, Urine 1.026 (1.005-1.030); Urine Appearance Clear (CLEAR); Urine Color Yellow (Yellow); pH Urine 8.5 (5-7)
[2024-07-12 12:23] LABS: Add Urine Microscopic? YES; RBC Urine 0-4 /hpf (0-2); UA Manual Slide Review YES
[2024-07-12 12:24] LABS: HCG, Serum Qual Negative (Negative)
[2024-07-12 12:24] LABS: Add Urine Culture? Yes; Bacteria Urine 1+ /hpf; Hyaline Casts Urine 0-4 /lpf; WBC Urine 15-25 /hpf (0-5)
[2024-07-12 12:30] VITALS: BP 114/74
[2024-07-12 12:32] LABS: Alanine Aminotransferase 27 U/L (0-33); Albumin Level 4.1 g/dL (3.5-5.2); Alkaline Phosphatase 105 U/L (35-105); Anion Gap 14.8 (5-19); Aspartate Amino Transferase 54 U/L (0-32); Blood Urea Nitrogen 12 mg/dL (6-20); Calcium 9.1 mg/dL (8.5-10.5); Carbon Dioxide 23 mmol/L (22-29); Chloride 103 mmol/L (98-107); Creatinine Clr Calc Pharmacy 132.2245; Globulin 3.4 g/dL (1.3-4.6); Glomerular Filtration Rate 118.2 mL/min (90-130); Glucose 97 mg/dL (65-115); Osmolality Calculated 284 mOsm/kg (285-295); Potassium 3.8 mmol/L (3.5-5.1); Sodium 137 mmol/L (136-145); Total Bilirubin 0.5 mg/dL (0.15-1.2); Total Protein 7.5 g/dL (6.6-8.7)
[2024-07-12 13:12] LABS: Lipase > 3456 U/L (13-60)
== END 2024-07-12 13:02 | disposition home or self-care (01) ==
PROVIDERS: Emergency Medicine; Emergency Provider Family Medicine
DX: R10.9 Unspecified abdominal pain (principal); N30.90 Cystitis, unspecified without hematuria
CPT/HCPCS: 80053; 81001; 83690; 84703; 85025; 87086; 99283